=== PATIENT | female | born 1995 | race Caucasian/White ===

== ENCOUNTER → 2023-10-24 10:50 | Outpatient (BNVA) | payer MEDICAID, SELFPAY | PROVIDERS: Family Provider Family Medicine; PCP Family Medicine; Visit Provider Family Medicine | DX: Z34.90 Encounter for supervision of normal pregnancy, unspecified, unspecified trimester (principal); R30.0 Dysuria | CPT/HCPCS: 80307; 81000; 81025; 84144; 84443; 84702; 85025; 86592; 86762; 86803; 86850; 86900; 87086; 87340; 87491; 87591; 87624; 87806 ==

== ENCOUNTER 2023-10-31 08:41 | Outpatient (CLI) | payer MEDICAID, SELFPAY ==
--- NOTE | 2023-10-31 08:45 | US_ITS ---
WS: [id number] EARLY OBSTETRICAL ULTRASOUND (<14 WEEKS). HISTORY: Dating US - in the next week if possible COMPARISON: None available. Single intrauterine gestational sac is identified. Cardiac activity at 166 BPM. [place]-rump length doris sures 3.6 cm which corresponds to a gestation of 10w4d. Normal-appearing yolk sac and amnion demonstr ated. No subchorionic hemorrhage. No free fluid. Normal size ovaries with no mass. Corpus luteal cyst within the RIGHT ovary. IMPRESSION: 1. Single intrauterine gestation of 10w4d with an EDC of 05/24/2024. 2. Normal heart rate.
== END 2023-10-31 08:42 | disposition home or self-care (01) ==
LOC: RAD 08:41
PROVIDERS: Family Provider Family Medicine; PCP Family Medicine; Visit Provider Family Medicine
DX: Z34.81 Encounter for supervision of other normal pregnancy, first trimester (principal)
CPT/HCPCS: 76801

== ENCOUNTER 2024-01-03 10:00 | Outpatient (CLI) | payer MEDICAID, SELFPAY ==
--- NOTE | 2024-01-03 10:00 | US_ITS ---
WS: [id number] OBSTETRICAL ULTRASOUND COMPLETE HISTORY: Anatomy US - 6-7 weeks from now COMPARISON: 10/31/2023 Single intrauterine gestation in breech presentation. Cervix is Closed and normal length. Cervical length is 4.1 cm. Normal amount of amniotic fluid surrounds the fetus. Placenta: Anterior, no previa or abruption. Placenta grade 1 Heart: 134 BPM. Inadequate evaluation of the four-chamber heart. Outflow tracts are not well visualiz ed. Anatomy: Incomplete visualization of the spine. kidneys, stomach and urinary bladder are unrema rkable. Abdominal wall, three-vessel cord and cord insertion site are normal. 4 extremities are present. profile: Not visualized. Gender: Female. measurements: BPD = 4.4 cm = 19w2d; HC = 16.6 cm = 19w2d; AC = 14.1 cm = 19w3d; FL = 3.1 cm = 19w3d; EFW: 292.7 g. 30.2 % Biometry is internally concordant. AGA by ultrasound: 19w2d JAMES by ultrasound: 05/27/2024 US/US OB >= 14 weeks fetus [id number] IMPRESSION: 1. Single intrauterine gestation of 19w2d with an JAMES of 05/27/2024. Appropria te growth since the first trimester ultrasound. 2. Limited screening anatomy evaluation. Recommend short-term follow-up to ree valuate the spine, heart and profile. The remaining anatomy is negative.
== END 2024-01-03 10:01 | disposition home or self-care (01) ==
LOC: RAD 10:00
PROVIDERS: Family Provider Family Medicine; PCP Family Medicine; Visit Provider Family Medicine
DX: Z34.80 Encounter for supervision of other normal pregnancy, unspecified trimester (principal)
CPT/HCPCS: 76805

== ENCOUNTER 2024-02-03 09:04 | Outpatient (CLI) | payer MEDICAID, SELFPAY ==
--- NOTE | 2024-02-03 09:14 | USR_ITS ---
PROCEDURE INFORMATION: Exam: US , Limited Exam date and time: 02/03/2024 9:28 AM Age: 28 years old Clinical indication: Screening exam; Routine US, uterus; Patient HX: Limited study for only spine, heart, and profile; Additional info: Follow up anatomy-spine, heart profile LABS AND CLINICAL REPORTS: Last menstrual period start date: 08/17/2023 TECHNIQUE: Imaging protocol: Real-time ultrasound of the maternal uterus with image documentation. Exam focused on the clinical indication. COMPARISON: US OB >= 14 weeks fetus [id number] 01/03/2024 10:05 AM FINDINGS: Gestation: Single live intrauterine gestation. heart rate: heart rate 150 bpm. Placenta: Anterior placenta. Negative for previa. ANATOMY: face: facial profile unremarkable. nose and lips unremarkable. heart four-chamber view, heart size and position: 4 chamber view unremarkable. heart right ventricular outflow tract: RVOT is unremarkable. heart left ventricular outflow tract: LVOT is unremarkable. spine: spine unremarkable. US/US OB limited [id number] IMPRESSION: The limited anatomy ultrasound exam is unremarkable.
== END 2024-02-03 09:05 | disposition home or self-care (01) ==
LOC: RAD 09:08
PROVIDERS: Family Provider Family Medicine; PCP Family Medicine; Visit Provider Family Medicine
DX: Z34.90 Encounter for supervision of normal pregnancy, unspecified, unspecified trimester (principal)
CPT/HCPCS: 76815

== ENCOUNTER → 2024-02-14 09:58 | Outpatient (BNVA) | payer MEDICAID, SELFPAY | PROVIDERS: Family Provider Family Medicine; PCP Family Medicine; Visit Provider Family Medicine | DX: Z34.80 Encounter for supervision of other normal pregnancy, unspecified trimester (principal) | CPT/HCPCS: 82950 ==

== ENCOUNTER → 2024-04-02 11:43 | Outpatient (BNVA) | payer MEDICAID, SELFPAY | PROVIDERS: Family Provider Family Medicine; PCP Family Medicine; Visit Provider Family Medicine | DX: Z34.80 Encounter for supervision of other normal pregnancy, unspecified trimester (principal); Z51.81 Encounter for therapeutic drug level monitoring | CPT/HCPCS: 85025 ==

== ENCOUNTER → 2024-04-30 10:00 | Outpatient (BNVA) | payer MEDICAID, SELFPAY | PROVIDERS: Family Provider Family Medicine; PCP Family Medicine; Visit Provider Family Medicine | DX: Z34.80 Encounter for supervision of other normal pregnancy, unspecified trimester (principal) | CPT/HCPCS: 87081 ==

== ENCOUNTER 2024-05-18 05:06 | Inpatient (IN) | payer MEDICAID, SELFPAY ==
--- NOTE | 2024-05-11 09:37 | ANES.PREANE2 ---
Pre-Anesthetic Assessment Height/Weight: Height 1.63 m Operation Date: 05/18/24 07:20 Proposed Procedures p Section Repeat- low transverse 71092, O34.219(Not Applicable) - Demetrius Martin MD Familial anesthetic complications: None Was Beta Marti taken within 24 hours: N/A Was Clonidine taken within 24 hours: N/A Last intake: > 8hrs Social No alcohol and No tobacco Exam alert, oriented x 3, clear to auscultation bilaterally and regular rate & rhythm Airway Mallampati: Class II Dentition: full Anesthetic Plan ASA status: 1 Anesthesia: Regional (specify below) Risk of > 500 ml blood loss (7ml/kg in children): Yes, adequate IV access and fluids planned Medications/Allergies Home Medications Medication Instructions Recorded Confirmed Last Taken Type vit 168-iron 27 mg-folic cap PO 10/24/23 05/07/24 Unknown History acid 800 mcg-omega3 235 mg capsule (One-A-Day -1) Allergies Allergy/AdvReac Type Severity Reaction Status Date / Time No Known Allergies Allergy Unverified 04/30/24 09:31 [facility] Anesthesia Surgical History Hx of wisdom tooth extraction History of section 01/2019 - Veronica Family History Father Diabetes mellitus, type 2 Social History Smoking and tobacco/nicotine status: never used tobacco/nicotine Alcohol intake: never Substance/Drug Use: never 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
[2024-05-18] VITALS (86 sets, daily range): BP systolic 97–121; BP diastolic 48–72; PULSE 54–87; RESP 16–18; TEMP 36–36.3; O2SAT 88–100; BMI 40.1
[2024-05-18 05:52] LABS: Basophils % 0.3 %; Eosinophils # 0.1 10^3/uL (0.0-0.8); Eosinophils % 1.1 %; Hematocrit 32.4 % (36-47); Lymphocytes # 2.5 10^3/uL (0.8-4.8); Lymphocytes % 26.9 %; Mean Corpuscular HGB Conc 34.3 g/dL (30-55); Mean Corpuscular Hemoglobin 28.9 pg (27-33); Mean Corpuscular Volume 84.4 fl (85-98); Mean Platelet Volume 12.1 fL (7.4-10.4); Monocytes # 0.5 10^3/uL (0.2-0.9); Monocytes % 5.7 %; Neutrophils # 6.03 10^3/uL (1.8-7.7); Nucleated Red Blood Cells % 0 %; Platelet Count 125 10^3/cmm (157-399); Red Blood Count 3.84 10^6/uL (3.85-5.65); Red Cell Distribution Width 13.3 % (12.1-15.1); White Blood Count 9.27 10^3/uL (3.29-11.43)
[2024-05-18] MEDS: lactated ringers 1,000 ML 999 ML IV (06:02)
--- NOTE | 2024-05-18 06:29 | P.ANESASSM_ITS ---
Pre-Anesthetic Assessment Height/Weight: Height 5 ft 4 in Weight 234 lb Pulse BP O2 Del Method 74 105/68 Room Air 05/18/24 05:53 05/18/24 05:53 05/18/24 06:10 Preop Diagnosis: Planned Operation Date: 05/18/24 07:20 Proposed Procedures p Section Repeat- low transverse 50676, O34.219(Not Applicable) - Demetrius Martin MD Was Beta Marti taken within 24 hours: N/A Was Clonidine taken within 24 hours: N/A Last intake: Intake Last Liquid Date 05/17/24 Last Liquid Time 22:30 Last Solid Date 05/17/24 Last Solid Time 20:00 Last Intake: 21:00 Social No alcohol and No tobacco Exam alert, oriented x 3, clear to auscultation bilaterally and regular rate & rhythm Airway Submandibular: within normal limits Cervical ROM: within normal limits Mallampati: Class II Dentition: full Anesthetic Plan ASA status: 2 Anesthesia: Regional (specify below) Other: here for repeat No prior issues with anesthesia Patient denies any complications during Denies cardiac or pulmonary issues Labs 05/18/2024 reviewed and acceptable for spinal today Platelet 125 METs greater than 4 Plan for routine with spinal Medications/Allergies Home Medications Medication Instructions Recorded Confirmed Last Taken Type vit 168-iron 27 mg-folic 1 cap PO DAILY 10/24/23 05/18/24 05/17/24 History acid 800 mcg-omega3 235 mg capsule (One-A-Day -1) Allergies Allergy/AdvReac Type Severity Reaction Status Date / Time No Known Allergies Allergy Verified 05/18/24 06:14 Current Medications Generic Name Dose Route Start Last Admin Trade Name Freq PRN Reason Stop Dose Admin Lactated Ringer's 1,000 mls @ 125 mls/hr 05/18/24 05:15 05/18/24 06:17 Lactated Ringers IV Not Given .Q8H MONA Lactated Ringer's 1,000 mls @ 999 mls/hr 05/18/24 06:02 05/18/24 06:02 Lactated Ringers IV 05/18/24 07:02 999 mls/hr .Q1H1M ONE Administration PFSH Anesthesia Surgical History Hx of wisdom tooth extraction History of section 01/2019 - Veronica Family History Father Diabetes mellitus, type 2 Social History Smoking and tobacco/nicotine status: never used tobacco/nicotine Alcohol intake: never Substance/Drug Use: never 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
--- NOTE | 2024-05-18 06:44 | P.HP_ITS ---
Providers/Chief Complaint 2 Admitting Physician: Demetrius Martin MD Primary Care Provider: Demetrius Martin MD Chief Complaint: Epi Consult History of Present Illness Alaina Gonsales is a 28 year old @ 39.1 wks by 10 wk US inconsistent with LMP. Preg c/b h/o shoulder dystocia, h/o LTCS, obesity, THC on initial screen. The patient presented to labor and delivery for a scheduled repeat low- transverse section. She is doing well at this time. She denies any chest pains, shortness of breath, nausea, vomiting, diarrhea, constipation, dysuria, leakage of fluid, vaginal bleeding. She has had a mild cough with coughing a couple times a day. No fevers or sputum production at this point. Medications/Allergies Home Medications Medication Instructions Recorded Confirmed Last Taken Type vit 168-iron 27 mg-folic 1 cap PO DAILY 10/24/23 05/18/24 05/17/24 History acid 800 mcg-omega3 235 mg capsule (One-A-Day -1) Allergies Allergy/AdvReac Type Severity Reaction Status Date / Time No Known Allergies Allergy Verified 05/18/24 06:14 PFSH Acute 2 PFSH: Surgical History Hx of wisdom tooth extraction History of section 01/2019 - Veronica Family History Father Diabetes mellitus, type 2 Social History (Updated 05/18/24 @ 06:46 by Demetrius Martin MD) Smoking and tobacco/nicotine status: never used tobacco/nicotine Alcohol intake: never Substance/Drug Use: former Former substance use details: THC prior to finding out she was 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 Reproductive History: : 3 Vitals/I&O/Wt Last Vital Signs Pulse 74 05/18/24 05:53 Resp 18 05/18/24 06:29 BP 105/68 05/18/24 05:53 O2 Del Method Room Air 05/18/24 06:29 Weight last 48 hrs Weight 234 lb Physical Exam 2 Narrative: General: Alert and oriented x3 Eyes: Pupils equal round and reactive to light and accommodation Mouth: Mucous membranes moist, pharynx non-erythematous Cardiac: Regular rate and rhythm without murmurs Lungs: Clear to auscultation bilaterally without wheezes, crackles or rhonchi Abdomen: Soft, non-tender, fundus consistent with gestational age Extremities: Trace edema in the bilateral lower extremities Data 05/18/24 05:40 A&P Assessment and plan (1) Supervision of normal intrauterine in multigravida: The patient is doing well at this time. heart tones are in the mid 150s with moderate variability and good accelerations with a category 1 tracing. The patient is not having any significant contractions. She is doing well overall at this time. We will plan to proceed with repeat low-transverse section as scheduled. All questions were answered. The patient and her are in agreement with current plan of care. Attestations 2 Medical Necessity Statement*: The patient will be here for greater than 2 midnights due to routine intrapartum and management of labor and delivery. Coding Level of Care Code Acute Code for Chg Fwd Diagnoses Supervision of normal intrauterine in multigravida Z34.80
[2024-05-18] MEDS: citric acid-sodium citrate 30 mL UDC PO (06:47)
[2024-05-18] MEDS: metoclopramide 5 mg/mL SDV 2 mL 10 MG IVP (06:48)
[2024-05-18] MEDS: famotidine 20 mg/2 mL INJ IVP (06:48)
[2024-05-18] MEDS: ceFAZolin 2,000 mg SDV 2000 MG IVP (07:18)
--- NOTE | 2024-05-18 08:55 | P.OP_ITS ---
Operative Report Date of procedure: May 18, 2024 Pre-op diagnosis: 1. Intrauterine at 39.1 weeks gestation 2. History of shoulder dystocia 3. History of low-transverse section 4. Obesity 5. THC on initial drug screen Post-op diagnosis: 1. Intrauterine status post repeat low-transverse section at 39.1 weeks gestation 2. History of shoulder dystocia 3. History of low-transverse section 4. Obesity 5. THC on initial drug screen 6. Subserosal fundal uterine fibroid measuring 2.5 cm in diameter Post-op findings: 1. Healthy infant female weighing 7 pounds 7 ounces with Apgars of 8 and 9 2. Intact placenta with central umbilical cord insertion site. 3. Subserosal fundal uterine fibroid Procedure done: Repeat low-transverse section Specimens removed/disposition: Placenta discarded Surgeon: Demetrius Martin MD Estimated blood loss (mL): 600 Complications: None Brief History: Alaina is a 28 y/o G3 now P3 status post repeat low-transverse section @ 39.1 wks by 10 wk US inconsistent with LMP. Preg c/b h/o shoulder dystocia, h/o LTCS, obesity, THC on initial screen. The patient presented for a planned repeat low-transverse section. The patient has been feeling well overall and has had no significant complications with this . Procedure: After informed consent was obtained, the patient was taken to the operating room and the patient was prepped and draped in a normal sterile fashion in the dorsal supine position.? A spinal was placed and adequate anesthesia was obtained.? At 7:23 AM on 05/18/2024 a Pfannenstiel skin incision was made and carried through to the underlying layer of fascia using a scalpel.? The fascial incision was then extended laterally using curved Mayos.? The fascia was then grasped with Tracee clamps and the underlying rectus muscles were dissected off taking care to avoid injury to the underlying tissues.? The peritoneum was entered bluntly with one digit.? It was then bluntly.? The bladder blade was placed and the vesicouterine peritoneum was well below the lower uterine segment of the uterus.? The uterine incision was made in the lower uterine segment in a transverse fashion with the scalpel at 7:30 AM on 05/18/2024.? The amniotic membrane was entered bluntly and a moderate amount of clear fluid was noted.? Uterine pressure was placed and the 's head delivered without complication at 7:32 AM on 05/18/2024.? There was 1 nuchal cord.? The mouth and nose were suctioned.? The rest of the infant delivered without difficulty.? The infant took a breath immediately upon delivery.? The cord was clamped and cut and the infant was handed to the awaiting pediatric nurses.? The placenta was then manually expressed.? The uterus was exteriorized from the abdomen.? A wet lap was used to clear the uterus of clots and debris.? The bladder blade was reinserted and the uterine incision was closed using 0 chromic in a running locking fashion.? The uterus was noted to be firm.? A second layer of the same suture was used in the same manner.? Excellent hemostasis was obtained. Next the posterior cul-de-sac was inspected and was cleared of any blood. A 2.5 cm uterine fibroid was noted that was subserosal and located on the fundal portion of the uterus. The gutters were cleared of any further clots and debris and the uterine incision was again inspected and hemostasis was noted.? The subfascial tissue was inspected for hemostasis and the peritoneum was re- approximated using 0 Vicryl in a running fashion.? The fascia was then re- approximated using 0 Vicryl in a running fashion.? The subcutaneous tissue was inspected for hemostasis.? Jason's fascia was then re-approximated using 3-0 plain in a running fashion.? Good hemostasis was noted.? The subcutaneous tissue was then re-approximated using a subcuticular stitch.? The patient tolerated the procedure well and was recovered in stable condition.? Estimated blood loss was 600 mL. Urine in the Avsquez catheter was clear. The patient was taken to recovery in good condition.
[2024-05-18 09:04] LABS: Amphetamines Screen Urine Negative (Negative); Barbiturates Screen Urine Negative (Negative); Benzodiazepines Screen Urine Negative (Negative); Cocaine Screen Urine Negative (Negative); Opiate Screen Urine Negative (Negative); PCP Screen Urine Negative (Negative); THC Screen Urine Negative (Negative)
--- NOTE | 2024-05-18 09:15 | ANE.PACU2 ---
Inpatient post-anesthesia follow up: Airway intact: Yes Vital signs: Temperature 96.8 F Pulse Rate 62 Respiratory Rate 17 Blood Pressure 110/63 Pulse Oximetry 98 Oxygen Delivery Me thod Room Air Oxygen Flow Rate Fraction of Inspir ed Oxygen Hydration adequate: Yes Nausea and vomiting: No Pain level: 1 Mental status: Baseline
[2024-05-18] MEDS: dextrose 5%-lactated ringers 1,000 ML 125 ML IV (13:08)
[2024-05-18] MEDS: ketorolac 30 mg/mL INJ IVP ×2 (14:38→20:38)
[2024-05-18] MEDS: ferrous sulfate EC 325 mg Tablet PO (18:35)
[2024-05-18] MEDS: docusate sodium 100 mg Capsule PO (18:35)
[2024-05-18 20:32] LABS: Mean Corpuscular HGB Conc 33.1 g/dL (30-55); Mean Corpuscular Hemoglobin 28.8 pg (27-33); Mean Platelet Volume 12.4 fL (7.4-10.4); Platelet Count 109 10^3/cmm (157-399); Red Blood Count 3.68 10^6/uL (3.85-5.65); Red Cell Distribution Width 13.4 % (12.1-15.1); White Blood Count 9.78 10^3/uL (3.29-11.43)
[2024-05-19] VITALS (8 sets, daily range): BP systolic 109–123; BP diastolic 59–75; PULSE 70–110; RESP 14–17; TEMP 36.7–36.9; O2SAT 100
[2024-05-19] MEDS: oxyCODONE-APAP 5-325 mg Tablet PO ×4 (03:50→17:37)
[2024-05-19] MEDS: ferrous sulfate EC 325 mg Tablet PO ×2 (07:49→17:37)
[2024-05-19] MEDS: docusate sodium 100 mg Capsule PO ×2 (08:50→17:37)
[2024-05-19] MEDS: PRENATAL VIT NO.130/IRON/FOLIC 1 EACH TABLET PO (08:50)
--- NOTE | 2024-05-19 08:52 | P.PN_ITS ---
Subjective 2 Subjective: The patient is doing well today. She is ambulating, voiding, passing gas and tolerating liquids by mouth. Her pain is a little more today, however still well-controlled. Her bleeding is decreasing well. Breast-feeding is starting to improve. Vitals/I&O/Wt Last Vital Signs Temp 96.8 F L 05/18/24 11:41 Pulse 72 05/19/24 03:50 Resp 16 05/19/24 07:49 BP 112/63 05/18/24 23:23 Pulse Ox 100 05/19/24 03:50 O2 Del Method Room Air 05/18/24 09:15 05/18/24 05/19/24 05/19/24 22:59 06:59 14:59 Output Total 1150 / 1900 1000 / 2900 Balance -1150 / 400 -1000 / -600 Weight last 48 hrs Weight 234 lb Physical Exam 2 Narrative: General: Alert and oriented x3 Cardiac: Regular rate and rhythm without murmurs Lungs: Clear to auscultation bilaterally without wheezes, crackles or rhonchi Abdomen: Soft, mild tenderness over uterus. The uterus is firm and 2 cm below the umbilicus. Incision is clean and dry without signs of infection or dehiscence. Mild serosanguineous discharge noted. Extremities: Trace edema in the bilateral lower extremities Urinary Catheter Management: Vasquez Latex: Cath Placed During This Visit: yes, but has since been removed by the nurse Reason for Continuing Indwelling Catheter: Decision to DC Catheter Urinary Catheter Date of Insertion: 05/18/24 Urinary Catheter Time of Insertion: 07:10 Date Urinary Catheter Removed: 05/18/24 Time Urinary Catheter Discontinued: 23:15 Data 05/18/24 19:40 A&P Assessment and plan (1) Status post delivery: The patient is doing well overall at this time. We will continue with routine care. Will plan for discharge home tomorrow if she continues to do well at that time. Attestations 2 Medical Necessity Statement*: The patient will be here for greater than 2 midnights due to routine intrapartum and management of labor and delivery. Coding Level of Care Code Acute Code for Chg Fwd Diagnoses Status post delivery Z98.891
[2024-05-19] MEDS: ibuprofen 800 mg tablet PO (21:12)
[2024-05-20 00:49] VITALS: RESP 15
[2024-05-20] MEDS: oxyCODONE-APAP 5-325 mg Tablet PO ×2 (00:49→08:36)
[2024-05-20 04:03] VITALS: BP 119/70; PULSE 70
[2024-05-20] MEDS: ferrous sulfate EC 325 mg Tablet PO (08:34)
[2024-05-20] MEDS: PRENATAL VIT NO.130/IRON/FOLIC 1 EACH TABLET PO (08:34)
[2024-05-20] MEDS: ibuprofen 800 mg tablet PO (08:34)
[2024-05-20] MEDS: docusate sodium 100 mg Capsule PO (08:34)
[2024-05-20 08:36] VITALS: RESP 16
[2024-05-20 09:10] VITALS: BP 124/84; PULSE 83
[2024-05-20 10:08] VITALS: RESP 16; TEMP 36.6
[2024-05-20 11:08] VITALS: BP 124/84; PULSE 83; RESP 16; TEMP 36.6
--- NOTE | 2024-06-08 21:15 | P.DS_ITS ---
Discharge Providers Date of Admission: 05/18/24 05:06 Date of Discharge: May 20, 2024 Attending Provider at Admission: Demetrius Martin MD Attending Provider at Discharge: Demetrius Martin MD Primary Care Provider: Demetrius Martin MD Diagnoses at Discharge Discharge Diagnosis (1) Status post delivery: Status: Acute Other Information Additional DC diagnoses/information: 1. Intrauterine status post repeat low-transverse section at 39.1 weeks gestation 2. History of shoulder dystocia 3. History of low-transverse section 4. Obesity 5. THC on initial drug screen 6. Subserosal fundal uterine fibroid measuring 2.5 cm in diameter Reason for Visit Reason for Visit: Epi Consult Brief History: Alaina is a 28 y/o G3 now P3 status post repeat low-transverse section @ 39.1 wks by 10 wk US inconsistent with LMP. Preg c/b h/o shoulder dystocia, h/o LTCS, obesity, THC on initial screen. The patient presented for a planned repeat low-transverse section. The patient has been feeling well overall and has had no significant complications with this . Hospital Course Hospital Course The patient had a repeat low-transverse section. Her postoperative state was benign in nature and she had no significant complications. Her ble eding has decreased well. Her pain has been under good control. She is ambulating, voiding, passing gas and tolerating food by mouth. Routine discharge instructions were discussed. All questions were answered. The patient is in agreement with discharge home at this time. She will plan to follow-up with me at 2 weeks and 6 weeks or sooner if needed. Physical Exam Narrative: General: Alert and oriented x3 Cardiac: Regular rate and rhythm without murmurs Lungs: Clear to auscultation bilaterally without wheezes, crackles or rhonchi Abdomen: Soft, mild tenderness over uterus. The uterus is firm and 2 cm below the umbilicus. Incision is clean and dry without signs of infection or deh iscence. Extremities: Trace edema in the bilateral lower extremities Urinary Catheter Management: Vasquez Latex: Cath Placed During This Visit: yes, but has since been removed by the nurse Reason for Continuing Indwelling Catheter: Decision to DC Catheter Urinary Catheter Date of Insertion: 05/18/24 Urinary Catheter Time of Insertion: 07:10 Date Urinary Catheter Removed: 05/18/24 Time Urinary Catheter Discontinued: 23:15 Discharge Data Studies Completed and Pending Laboratory Results WBC 9.78 10^3/uL (3.29-11.43) 05/18/24 19:40 RBC 3.68 10^6/uL (3.85-5.65) L 05/18/24 19:40 Hgb 10.60 g/dL (11.27-16.99) L 05/18/24 19:40 Hct 32.0 % (36-47) L 05/18/24 19:40 MCV 87.0 fl (85-98) 05/18/24 19:40 MCH 28.8 pg (27-33) 05/18/24 19:40 MCHC 33.1 g/dL (30-55) 05/18/24 19:40 RDW 13.4 % (12.1-15.1) 05/18/24 19:40 Plt Count 109 10^3/cmm (157-399) L 05/18/24 19:40 MPV 12.4 fL (7.4-10.4) H 05/18/24 19:40 Neut % (Auto) 65.0 % 05/18/24 05:40 Lymph % (Auto) 26.9 % 05/18/24 05:40 [place] % (Auto) 5.7 % 05/18/24 05:40 Eos % (Auto) 1.1 % 05/18/24 05:40 Baso % (Auto) 0.3 % 05/18/24 05:40 Neut # (Auto) 6.03 10^3/uL (1.8-7.7) 05/18/24 05:40 Lymph # (Auto) 2.5 10^3/uL (0.8-4.8) 05/18/24 05:40 [place] # (Auto) 0.5 10^3/uL (0.2-0.9) 05/18/24 05:40 Eos # (Auto) 0.1 10^3/uL (0.0-0.8) 05/18/24 05:40 Baso # (Auto) 0.0 10^3/uL (0.0-0.1) 05/18/24 05:40 Nucleated RBC % (auto) 0 % 05/18/24 05:40 Nucleated RBCs # 0.0 /100WBC 05/18/24 05:40 Urine Opiates Screen Negative ng/mL (Negative) 05/18/24 06:15 Ur Barbiturates Screen Negative ng/mL (Negative) 05/18/24 06:15 Ur Phencyclidine Scrn Negative ng/mL (Negative) 05/18/24 06:15 Ur Amphetamines Screen Negative ng/mL (Negative) 05/18/24 06:15 U Benzodiazepines Scrn Negative ng/mL (Negative) 05/18/24 06:15 Urine Cocaine Screen Negative ng/mL (Negative) 05/18/24 06:15 U Marijuana (THC) Screen Negative ng/mL (Negative) 05/18/24 06:15 Blood Type B Positive 05/18/24 05:40 Rho(D) Type Rh positive 05/18/24 05:40 Antibody Screen Negative 05/18/24 05:40 Vitals Last Vital Signs Temp 97.8 F 05/20/24 11:08 Pulse 83 05/20/24 11:08 Resp 16 05/20/24 11:08 BP 124/84 05/20/24 11:08 Pulse Ox 100 05/19/24 03:50 O2 Del Method Room Air 05/18/24 09:15 Discharge Plan Discharge Patient Disposition: Home Condition: Good Prescriptions: New ibuprofen 800 mg Tablet 800 mg PO TID Qty: 60 0RF docusate sodium 100 mg Capsule 100 mg PO BID PRN (Reason: constipation) Qty: 30 0RF Continued One-A-Day -1 27 mg iron- 800 mcg-235 mg capsule 1 cap PO DAILY Discharge Orders: Discharge Order (Routine); Ordered 05/20/24 Ordered By: Demetrius Martin Referrals: Demetrius Martin MD [Primary Care Provider] - 06/01/24 11:00 am () Discharge Diet: Regular Discharge Activity: Limit activity as instructed Patient Instructions: Depression (DC), Opioid Safety (DC), Preeclampsia and Eclampsia After Delivery (GEN), Hemorrhage (DC), OB [facility], OB Discharge Report, OB Food/Drug Interaction Guide, Opioid Safety, OB [facility], Abnormal Bleeding Activity Restrictions/Additional Instructions: Do not lift anything heavier than your in the car seat for the first 2 weeks, then gradually increase. If you have any concern for infection in your incision site, please contact Dr. Martin's office right away. Nothing per vagina for 6 weeks. Showers are recommended instead of baths for the first 6 weeks. Discharge Attestations Time Spent in Discharge Care*: greater than 30 min Quality Metrics Clinical Quality Measures [ No reported AMI, CVA or VTE this stay] Coding Level of Care Code Acute Code for Chg Fwd Diagnoses Status post delivery Z98.891
== END 2024-05-20 10:52 | disposition home or self-care (01) | DRG 788 ==
PROVIDERS: Admitting Provider Family Medicine; PCP Family Medicine; Visit Provider Family Medicine
PROC: 10D00Z1 Extraction of Products of Conception, Low, Open Approach (ICD-10-PCS; CPT 59514; principal; 2024-05-18 07:00)
DX: O34.211 Maternal care for low transverse scar from previous cesarean delivery (principal); D25.2 Subserosal leiomyoma of uterus; O34.13 Maternal care for benign tumor of corpus uteri, third trimester; Z3A.39 39 weeks gestation of pregnancy; Z37.0 Single live birth; O99.214 Obesity complicating childbirth
CPT/HCPCS: 36415; 51702; 59025; 59409; 80306; 85025; 85027; 86850; 86900; 96374; J0690; J1885; J2274; J2405; J2765; J3010; J3490; J7030; J7120; J7121